=== PATIENT | male | born 1995 | race Caucasian/White ===

== ENCOUNTER 2022-05-02 17:06 | Emergency (ER) | payer OTHER, SELFPAY ==
[2022-05-02] MEDS ORDERED: Ibuprofen 800 MG TAB ONE ×2 (19:15→19:17)
== END 2022-05-02 19:49 | disposition home or self-care (01) ==
LOC: MADERS 17:06
DX: S93.401A Sprain of unspecified ligament of right ankle, initial encounter (principal); F17.290 Nicotine dependence, other tobacco product, uncomplicated; X50.1XXA Overexertion from prolonged static or awkward postures, initial encounter